=== PATIENT | female | born 2000 | race Caucasian/White ===

== ENCOUNTER → 2020-09-25 08:54 | Outpatient (BNVA) | payer MEDICAID, SELFPAY | PROVIDERS: Visit Provider Obstetrics & Gynecology | DX: O09.899 Supervision of other high risk pregnancies, unspecified trimester (principal); O99.321 Drug use complicating pregnancy, first trimester; O99.211 Obesity complicating pregnancy, first trimester; Z87.59 Personal history of other complications of pregnancy, childbirth and the puerperium; O99.340 Other mental disorders complicating pregnancy, unspecified trimester; F41.9 Anxiety disorder, unspecified; O34.219 Maternal care for unspecified type scar from previous cesarean delivery | CPT/HCPCS: 80307; 84315; 85025; 86592; 86762; 86803; 86850; 86900; 87086; 87340; 87491; 87591; 87806 ==

== ENCOUNTER → 2020-10-11 14:22 | Outpatient (BNVA) | payer MEDICAID, SELFPAY | PROVIDERS: Visit Provider Obstetrics & Gynecology | DX: O09.899 Supervision of other high risk pregnancies, unspecified trimester (principal) | CPT/HCPCS: 84315; 88175 ==

== ENCOUNTER → 2021-01-29 15:42 | Outpatient (BNVA) | payer MEDICAID, SELFPAY | PROVIDERS: Visit Provider Obstetrics & Gynecology | DX: Z34.80 Encounter for supervision of other normal pregnancy, unspecified trimester (principal); F32.9 Major depressive disorder, single episode, unspecified; F41.9 Anxiety disorder, unspecified | CPT/HCPCS: 82950; 84315; 85025 ==

== ENCOUNTER → 2021-07-13 13:42 | Outpatient (BNVA) | payer MEDICAID, SELFPAY | PROVIDERS: Visit Provider Nurse Practitioner Family | DX: Z20.822 Contact with and (suspected) exposure to COVID-19 (principal) | CPT/HCPCS: 87635 ==

== ENCOUNTER → 2022-02-14 10:46 | Outpatient (BNVA) | payer MEDICAID, SELFPAY | PROVIDERS: Visit Provider Nurse Practitioner Women's Health | DX: O20.9 Hemorrhage in early pregnancy, unspecified (principal) | CPT/HCPCS: 76830; 84702; 85025 ==

== ENCOUNTER 2022-10-23 17:44 | Emergency (ER) | payer MEDICAID, SELFPAY ==
[2022-10-23 17:56] VITALS: BP 120/83; PULSE 85; TEMP 37.2; O2SAT 98; BMI 31.4
[2022-10-23 18:19] LABS: HCG Quantitative 13.23 mIU/mL
[2022-10-23 18:30] VITALS: BP 122/78; O2SAT 95
--- NOTE | 2022-10-23 19:09 | USR_ITS ---
PROCEDURE INFORMATION: Exam: US First Trimester, Transabdominal and US , Transvaginal Exam date and time: 10/23/2022 7:35 PM Age: 22 years old Clinical indication: complicated by abdominal or pelvic pain; Other: Bilateral pelvic cramping x 2 days. No vag bleed; Gestational age or lmp: 4w 3d by lmp; ; Patient HX: G4-p2(both premature) - a2 (both ectopics) - l2; Additional info: R/O ectopic LABS AND CLINICAL REPORTS: Serum Choriogonadotropin (HCG): 13 mIU/mL Last menstrual period start date: 09/22/2022 Gestational age (Established): 4 w 3 d Estimated due date (Established): 06/29/2023 TECHNIQUE: Imaging protocol: Real-time transabdominal obstetrical ultrasound of the maternal pelvis and a first trimester , less than 14 weeks 0 days, with image documentation. Transvaginal imaging was used for better evaluation of the fetus, adnexa, and/or cervix. COMPARISON: US OB follow up [facility] 01/29/2021 3:03 PM FINDINGS: Gestation: No evidence for an intrauterine gestation. Embryonic/ heart rate: See under Gestation . Extra-embryonic membranes/Placenta: See under Gestation . Amniotic fluid: See under Gestation . BIOMETRY: Gestational age (AUA): See under Gestation . MATERNAL: Uterus: Uterus measures 8.1 cm x 4.9 cm x 4.4 cm. The uterus is unremarkable. The endometrium is unremarkable. Endometrium measures 7.9 mm. Cervix: Unremarkable. Right ovary/adnexa: Enlarged right ovary. Right ovary measures 4.6 cm x 4.2 cm x 3 cm. Right ovarian volume is 31 mL. Two dominant follicles in the right ovary, the larger measures 2.8 cm. Multiple subcentimeter follicles in the right ovary. There is flow in the right ovary on Doppler imaging. Left ovary/adnexa: Left ovary measures 3 cm x 1.4 cm x 2.1 cm. Left ovarian volume is 4.4 mL. Multiple subcentimeter follicles in the left ovary. There is flow in the left ovary on Doppler imaging. Intraperitoneal space: No free fluid in the pelvis. US/US OB <= 14 weeks fetus [id number] IMPRESSION: 1. No evidence for an intrauterine gestation. This could be due to early stage of , a prior spontaneous or possible ectopic is not completely ruled out. Recommend clinical correlation and follow-up ultrasound in 1 week or sooner as clinically indicated. 2. Two dominant follicles in the right ovary. 3. Multiple subcentimeter follicles in both right and left ovaries.
[2022-10-23 19:21] VITALS: BP 133/93; O2SAT 97
--- NOTE | 2022-10-23 20:08 | ED_ITS ---
HPI - General: Chief complaint: OB/Uterine Contractions Stated complaint: Low HCG levels Time Seen by Provider: 10/23/22 18:42 History of Present Illness: Patient -2-2-2 at 4.3 WGA with a history of 2 ectopic pregnancies 1 in July 2018 and 1 in November 2021 presents the emergency department with concern for ectopic . Patient states her LMP was 319 and she had a positive test on 411. She states that her hCG for this has been low. She has had multiple urine hCGs which have had a faint positive line, she had a quantitative done 2 days ago which was 34. She was coming into the hospital to have repeat blood work done and started having bilateral lower quadrant abdominal cramps approximately 2 hours prior to arrival so instead of going new outpatient labs she presented to the emergency department. Patient denies any nausea, vomiting, vaginal bleeding. She is concerned that she is having another ectopic . No other modifying factors, no other associated symptoms. Review of Systems General: Reports: 10 or more systems reviewed and unremarkable except in HPI and below PFSH ED PFSH: Medical History Anxiety Depression History of ectopic (~2018) treated with methotrexate No pertinent past medical history neghx: htn,dm,thyroid,dvt/pe PCP: None Surgical History Hx of section (~05/09/19) Emergency Hx of eye surgery 2006-- both eye 2007-- right eye Family History Grandmother Diabetes Paternal Heart disease Paternal Stroke Paternal Grandfather Heart disease Paternal Denies family history of Colon cancer Ovarian cancer Hypercholesteremia Breast cancer Hypertension Uterine cancer Thyroid disease Social History Smoking and tobacco status: current every day smoker cigarettes Physical Exam Const: COMMON NORMALS: no acute distress and patient oriented x3 GENERAL APPEARANCE: cooperative and well kempt ORIENTATION/CONSCIOUSNESS: Yes awake HENMT: COMMON NORMALS: normocephalic, atraumatic, hearing grossly normal bilaterally, external ears normal and Normal external nose present HEAD & SCALP: normocephalic and atraumatic FACE & SINUS: normal facial exam NOSE: Normal external nose present EXTERNAL EAR: Yes external ears normal MOUTH: Normal oral and palatal mucosa present THROAT: posterior oropharynx normal Eye: COMMON NORMALS: Equal, round and reactive pupils present and EOMs intact bilaterally PUPIL: Yes Equal, round and reactive pupils present Neck/C-Spine: COMMON NORMALS: supple GENERAL: Yes normal visual inspection CERVICAL SPINE: No Cervical spine tenderness and No step off deformity Chest: COMMONS NORMALS: normal inspection of the chest Resp: COMMON NORMALS: normal respiratory effort, No retractions, No use of accessory muscles and clear to auscultation bilaterally AUSCULTATION: clear to auscultation bilaterally Cardio: COMMON NORMALS: regular rate and Peripheral pulses 2+ throughout RATE: regular rate PERIPHERAL PULSES: Peripheral pulses 2+ throughout GI: COMMON NORMALS: Normal to inspection, nondistended, normoactive bowel sounds present, Soft to palpation and non-tender PALPATION: Yes Soft to palpation : COMMON NORMALS: Yes no CVA tenderness BLADDER/KIDNEY EXAM: Yes no CVA tenderness Back/Pelvis: COMMON NORMALS: no CVA tenderness and thoracic and lumbar spine normal to inspection THORACIC SPINE/UPPER BACK: Yes normal to inspection LUMBAR SPINE/LOWER BACK: Yes normal to inspection Extremity: COMMON NORMALS: normal to inspection and full ROM GENERAL: No clubbing and No cyanosis Neuro: COMMON NORMALS: patient oriented x3, moves all extremities, no focal motor deficits and no sensory deficits noted Psych: COMMON NORMALS: mental status grossly normal, Normal thought process present, cooperative and activity/motor behavior normal APPEARANCE: Yes well kempt ATTITUDE: Yes calm THOUGHT PROCESS: Normal thought process present Skin: COMMON NORMALS: no rashes or lesions noted GENERAL SKIN EXAM: no rashes or lesions noted Course 2 Reevaluation(s): Reevaluation #1: Extensive discussion with the patient regarding indeterminate ultrasound findings, impressed upon her the importance of close outpatient follow-up as we cannot determine if this is a miscarriage in progress, an early intrauterine or most concerning an early ectopic . Patient verbalized understanding and agreement, she states that she is being closely followed by Dr. Carey as an outpatient and will be returning back to the hospital on Friday for repeat quantitative hCG. She also anticipates another transvaginal ultrasound next week. Patient advised to follow-up as directed, return to the emergency department with any new or worsening symptoms or if unable to follow-up as directed or tolerate p.o. intake. Patient verbalized understanding and agreement with this plan, all questions answered. Time: 21:02 Vital Signs: Vital signs: Vital Signs Temperature 98.9 F 10/23/22 17:56 Pulse Rate 85 10/23/22 17:56 Blood Pressure 133/93 10/23/22 19:21 Pulse Oximetry 97 10/23/22 19:21 Oxygen Delivery Me thod Room Air 10/23/22 19:21 MDM - OB/Uterine Contractions Medical Decision Making Due to concern for possible ectopic will get beta hCG and anticipate OB ultrasound. Given that patient is at 4 weeks WGA ultrasound may be indetermi nant and patient may require close outpatient follow-up care, patient verbalized understanding and agreement. Lab Data Radiology Impressions Ultrasound 10/23/22 19:09 IMPRESSION: 1. No evidence for an intrauterine gestation. This could be due to early stage of , a prior spontaneous or possible ectopic is not completely ruled out. Recommend clinical correlation and follow-up ultrasound in 1 week or sooner as clinically indicated. 2. Two dominant follicles in the right ovary. 3. Multiple subcentimeter follicles in both right and left ovaries. Laboratory Results Ser , Semi-Qnt 13.23 mIU/mL 10/23/22 17:53 Discharge Plan Discharge Patient Disposition: Home Clinical Impression: Abdominal pain during , Prior ectopic in first trimester, antepartum Condition: Stable Prescriptions: No Action No Known Home Medications Discharge Orders: Discharge ED (Routine); Ordered 10/23/22 Ordered By: Robert Freitas Referrals: CHAYITO Montalvo [Emergency Department] - (as needed) Saundra Carey MD [Physician] - 10/25/22 (as scheduled) Patient Instructions: Abdominal Pain (ED), Ectopic Coding Level of Care Code ED Performance Engineer for Zaina Townsend
[2022-10-23 21:21] VITALS: BP 128/69; PULSE 82; RESP 16; O2SAT 99
--- NOTE | 2022-10-25 14:42 | DCPLANNER ---
manager billing called patient due to no primary care physician - patient sees Dr[facility] Srinivasan Velas[facility] [place].
== END 2022-10-23 21:22 | disposition home or self-care (01) ==
PROVIDERS: Emergency Medicine; Emergency Provider Emergency Medicine; PCP Family Medicine
DX: O26.891 Other specified pregnancy related conditions, first trimester (principal); Z3A.01 Less than 8 weeks gestation of pregnancy; R10.30 Lower abdominal pain, unspecified; F17.210 Nicotine dependence, cigarettes, uncomplicated; O99.331 Smoking (tobacco) complicating pregnancy, first trimester
CPT/HCPCS: 36415; 76801; 84702; 99284

== ENCOUNTER 2022-12-23 17:49 | Outpatient (CLI) | payer MEDICAID, SELFPAY ==
[2022-12-23 18:40] LABS: HCG Quantitative 22.16 mIU/mL
== END 2022-12-23 17:50 | disposition home or self-care (01) ==
PROVIDERS: PCP Family Medicine; Visit Provider Obstetrics & Gynecology
DX: N92.6 Irregular menstruation, unspecified (principal)
CPT/HCPCS: 84702

== ENCOUNTER 2022-12-25 11:42 | Outpatient (CLI) | payer MEDICAID, SELFPAY ==
[2022-12-25 12:47] LABS: HCG Quantitative 11.49 mIU/mL
== END 2022-12-25 11:43 | disposition home or self-care (01) ==
LOC: LAB 11:44
PROVIDERS: PCP Family Medicine; Visit Provider Obstetrics & Gynecology
DX: N92.6 Irregular menstruation, unspecified (principal)
CPT/HCPCS: 36415; 84702

== ENCOUNTER → 2023-03-20 13:12 | Outpatient (BNVA) | payer MEDICAID, SELFPAY | PROVIDERS: PCP Family Medicine; Visit Provider Obstetrics & Gynecology | DX: N97.9 Female infertility, unspecified (principal) | CPT/HCPCS: 76830 ==

== ENCOUNTER 2023-03-24 20:16 | Outpatient (CLI) | payer MEDICAID, SELFPAY ==
[2023-03-24 23:40] LABS: Estradiol 33.1 pg/mL; Follicle Stimulating Hormone 6.1 mIU/mL
== END 2023-03-24 20:17 | disposition home or self-care (01) ==
PROVIDERS: PCP Family Medicine; Visit Provider Obstetrics & Gynecology
DX: N97.9 Female infertility, unspecified (principal)
CPT/HCPCS: 36415; 82670; 83001

== ENCOUNTER 2023-04-11 17:34 | Outpatient (CLI) | payer MEDICAID, SELFPAY ==
[2023-04-11 18:34] LABS: Progesterone 9.58 ng/mL
== END 2023-04-11 17:35 | disposition home or self-care (01) ==
PROVIDERS: PCP Family Medicine; Visit Provider Obstetrics & Gynecology
DX: N97.9 Female infertility, unspecified (principal)
CPT/HCPCS: 36415; 84144

== ENCOUNTER → 2023-04-18 10:05 | Outpatient (BNVA) | payer MEDICAID, SELFPAY | PROVIDERS: PCP Family Medicine; Visit Provider Obstetrics & Gynecology | DX: Z32.00 Encounter for pregnancy test, result unknown (principal) | CPT/HCPCS: 81025 ==